=== PATIENT | female | born 1980 | race Caucasian/White ===

== ENCOUNTER 2024-11-29 08:15 | Emergency (ER) | payer BC, SELFPAY ==
[2024-11-29 08:17] VITALS: BP 166/105
--- NOTE | 2024-11-29 08:54 | ED.GENMED ---
History of Present Illness
General
Chief Complaint: Abdominal Pain
Source: patient
Exam Limitations: none
Time Seen by Provider: 11/29/24 08:40
History of Present Illness
History of Present Illness:
43yoF with a history of hypertension, GERD, and diverticulosis presenting for evaluation of epigastric pain. She woke up with the symptoms yesterday morning. She reports a spasming pain that is localized to her epigastric region. She is also
having associated belching. Symptoms worsen if she is laying prone. She had some nausea and dry heaving last night. She has had GERD present similarly in the past. She tried Nexium, Gaviscon, and a bland diet without much improvement. She
denies any fevers, chest pain, shortness of breath, pleuritic pain, urinary symptoms, constipation, diarrhea. LMP 2-3 weeks ago. No previous abdominal surgeries. She had a colonoscopy and endoscopy last year in [place] which were reportedly
normal. Her only current medication is lisinopril. She denies any NSAID use.
Phy Exam
General Physical Exam
General Presentation: well appearing and no apparent distress
General age: appears stated age
General Skin: warm and dry
General Habitus: normal
General Mental: alert
ENT Exam
ENT Exam: normocephalic
Cardiovascular Exam
Cardiovascular Exam: regular rate/rhythm and no murmur
Pulmonary Exam
Pulmonary Exam: lungs clear, no respiratory distress, no rales, no crackles, no rhonchi and no wheezing
Gastrointestinal Exam
Gastrointestinal Exam: soft, non distended and other (+Tenderness in the epigastrium. Remainder of abdomen is non-tender. Abdomen soft, non-distended. No rebound or guarding. )
Neurological Exam
Neurological Exam: alert
[place] Coma Scale
Eye Opening: Spontaneous
Verbal Response: Oriented
Motor Response: Obeys Commands
GCS Total Score: 15
Skin Exam
Skin Exam: normal color and warm/dry
Psychiatric Exam
Psychiatric Exam: normal mood/affect
Course
Orders/Labs/Results
Orders:
Orders
11/29/24 08:21
ECG [Electrocardiogram (*1)] Urgent
Reason for Study: Abdominal Pain
11/29/24 08:22
EKG- Treatment ONCE
11/29/24 08:53
Famotidine [Pepcid] 20 mg IV NOW STA
Pantoprazole [Protonix IV] 40 mg IV NOW STA
Sucralfate Suspension [Carafate Suspension] 1 gm PO NOW STA
Test Result ONCE
US Abdomen Complete/Upper Urgent
Comment:
Reason For Exam: epigastric pain
11/29/24 09:05
Complete Blood Count/With Diff Urgent
Comprehensive Metabolic Panel Urgent
HCG, Serum Qualitative Screen Urgent
Lipase Urgent
Troponin I Urgent
11/29/24 11:15
Mag Hydrox/Al Hydrox/Simeth [Maalox] 15 ml PO NOW STA
11/29/24 11:16
Viscous Lidocaine 2% [Xylocaine Viscous Cup] 15 ml PO ONCE ONE
11/29/24 11:27
Mag Hydrox/Al Hydrox/Simeth [Maalox] 30 ml .ROUTE .STK-MED ONE
Abnormal Lab Results
11/29/24
09:05
MPV 11.0 H fL
(7.4-10.4)
Chloride 108 H mmol/L
(98-107)
Glucose 106 H mg/dl
(70-99)
11/29/24 09:05
11/29/24 09:05
Vital Signs
Initial and Last Documented VS:
Initial Vital Signs
Temp Pulse Resp BP Pulse Ox
97.9 F 88 16 166/105 99
11/29/24 08:17 11/29/24 08:17 11/29/24 08:17 11/29/24 08:17 11/29/24 08:17
Last Documented Vital Signs
Temp Pulse Resp BP Pulse Ox
97.9 F 81 18 157/103 99
11/29/24 08:17 11/29/24 11:31 11/29/24 11:31 11/29/24 11:31 11/29/24 11:31
MDM/Problems Addressed
Differential Diagnosis Includes:
43yoF here with epigastric pain since yesterday. Also c/o belching and had some nausea/dry heaving yesterday. Hx of GERD. Denies CP/SOB. Mild hypertension noted in triage. Remainder of vitals are stable. She is well appearing in no distress. No
signs of peritonitis on abdominal exam. Differential diagnosis includes but is not limited to: GERD, gastritis, PUD, pancreatitis, biliary colic, consider ACS
Initial ED plan: EKG obtained in triage shows NSR without ischemic changes. Will check abdominal labs, troponin, and upper abdominal ultrasound. IV Protonix, Pepcid, and Carafate for symptoms.
*EKG
Interpreted by ED Provider?: Yes
EKG Intrepretation Date: 11/29/24
Heart Rate: 77
Rate: normal
Rhythm: sinus
Hiram: normal axis
Interval: normal interval
QRS Pattern: normal QRS
Ischemia: no ischemia
*Critical Care Note
Total Time (30-74mins, 75-104mins- exclusive of procedures): Not Applicable
Update Note
Update Note:
Labs unremarkable including normal white count, lipase, LFTs, and renal function. Troponin within normal limits. Upper abdominal ultrasound is negative for acute findings. Pain improved on reassessment although is still present. No indication
for hospitalization at this time. Suspect gastritis. Prescriptions provided for Protonix, Carafate, and Zofran. She was advised to follow-up with her PCP as well as gastroenterology. Strict ED return precautions discussed. Patient in agreement
with plan and was discharged in stable condition.
ED Attending Note
-
Portions of this chart may have been created with voice recognition software.� Occasional wrong word or��sound alike� substitutions may have occurred due to the inherent limitations of voice recognition software.
Discharge Plan
Departure
Patient Disposition: Home (Routine Discharge)
Date of Disposition: 11/29/24
Time of Disposition: 11:16
Patient with high blood pressure during this ER visit?: Yes
Discharge Problem:
Epigastric abdominal pain
Instructions: Abdominal Pain
Prescriptions:
New
pantoprazole [Protonix] 40 mg tablet,delayed release (DR/EC)
40 mg PO BID Qty: 60 0RF
sucralfate [Carafate] 1 gram tablet
1 g PO ACHS Qty: 40 0RF
ondansetron 4 mg tablet,disintegrating
4 mg PO Q6 PRN (Reason: nausea and vomiting) Qty: 20 0RF
Referrals:
Pavel Alcantara Jr., MD [Family Provider] -
Sabrina Buckley MD [Active] -
Activity Restrictions/Additional Instructions:
Take Protonix and Carafate as prescribed. You may also take famotidine (Pepcid) 20mg twice daily as needed. Take Zofran as needed for nausea.
Please follow-up with your family doctor and press tender. Return to the ER with any new or worsening symptoms including severe pain or fevers.
Interventions
Interventions:
*Risk Screen - Suicide Last Done: 11/29/24 08:17
*General Assessment Last Done: 11/29/24 08:17
*Nursing Disposition Last Done: 11/29/24 11:35
JG-Jsxlov-Ljvtwsmopq Assessment Last Done: 11/29/24 09:17
Discharge Date and Time
Discharge Date/Time: 11/29/24 11:40
Print Language: KHMER
[2024-11-29 09:03] VITALS: BMI 41.2
[2024-11-29] MEDS: PEPCID 20 MG IV (09:10)
[2024-11-29] MEDS: CARAFATE SUSPENSION 1 GM PO (09:10)
[2024-11-29] MEDS: PROTONIX IV 40 MG IV (09:10)
[2024-11-29 09:31] LABS: % Basophils 0.6 % (0-2); % Eosinophils 3.5 % (0-6); % Immature Granulocytes 0.4 % (0-0.5); % Lymphocytes 26.4 % (20.5-51.1); % Monocytes 5.7 % (1.7-9.3); % Neutrophils 63.4 % (42.2-75.2); Absolute Eosinophils 0.3 10^3/uL (0-0.7); Absolute Lymphocytes 1.9 10^3/uL (1.2-3.4); Absolute Monocytes 0.4 10^3/uL (0.1-0.6); Absolute Neutrophils 4.6 10^3/uL (1.4-6.5); Hematocrit 42.5 % (37.0-47.0); Hemoglobin 14.1 g/dL (12.0-16.0); Mean Corp Hgb Conc. 33.2 g/dL (33.0-37.0); Mean Corpuscular Hgb 28.7 pg (27.0-31.0); Mean Corpuscular Volume 86.6 fL (81.0-99.0); Nucleated Red Blood Cells % 0 %; Platelet Count 217 10^3/uL (130-400); Red Blood Cell Count 4.91 10^6/uL (4.20-5.40); Red Cell Dist. Width 13.1 % (11.5-14.5); White Blood Cell Count 7.2 10^3/uL (4.8-10.8)
[2024-11-29 09:32] LABS: HCG, Serum Qualitative Screen Negative
[2024-11-29 09:36] LABS: ALT (SGPT) 15 U/L (0-35); AST (SGOT) 16 U/L (14-36); Albumin 4.3 g/dl (3.5-5.0); Alkaline Phosphatase 60 U/L (38-126); Blood Urea Nitrogen 15 mg/dl (7-17); Calcium 9.3 mg/dl (8.4-10.2); Carbon Dioxide 23 mmol/L (22-30); Chloride 108 mmol/L (98-107); Estimated Creatinine Clearance 118 ml/min; Glucose 106 mg/dl (70-99); Potassium 4.2 mmol/L (3.5-5.1); Sodium 139 mmol/L (135-145); Total Bilirubin 0.5 mg/dl (0.2-1.3); Total Protein 6.8 g/dl (6.3-8.2); eGFR > 60.00
[2024-11-29 09:46] LABS: Troponin I < 0.012 ng/ml
[2024-11-29 10:01] LABS: Lipase 101 U/L (23-300)
[2024-11-29] MEDS: MAALOX 15 ML PO (11:29)
[2024-11-29] MEDS: XYLOCAINE VISCOUS CUP 15 ML PO (11:29)
[2024-11-29 11:31] VITALS: BP 157/103
== END 2024-11-29 11:40 | disposition home or self-care (01) ==
LOC: EMR 08:15
PROVIDERS: Physician Assistant; EMERGENCY PHYSICIAN Emergency Medicine
DX: R10.13 Epigastric pain (principal); R11.0 Nausea; I10 Essential (primary) hypertension; K21.9 Gastro-esophageal reflux disease without esophagitis; Z87.19 Personal history of other diseases of the digestive system
CPT/HCPCS: 96374; 96375; 99284; 76700; 80053; 83690; 84484; 84703; 85025; 93005

== ENCOUNTER 2025-03-15 10:18 | Emergency (ER) | payer OTHER, SELFPAY ==
[2025-03-15 10:22] VITALS: BP 140/74
--- NOTE | 2025-03-15 11:16 | ED.GENMED ---
History of Present Illness
General
Chief Complaint: Cold/Flu/URI Symptoms
Source: patient
Time Seen by Provider: 03/15/25 10:56
History of Present Illness
History of Present Illness:
44-year-old female presents to the emergency room for evaluation of fever up to 102.4 at home. She has bodyaches and fatigue. Patient's been feeling unwell for the past 4 days or so. She was seen by her primary care doctor who started her on
doxycycline as well as sending off testing for Lyme, mono and Hant virus. Patient denies travel to the [facility]. She took a COVID test at home which was negative. Cough is nonproductive. She has some increased urinary frequency but denies
dysuria.
Phy Exam
Physical Exam
Physical Exam:
General: Awake, Alert, Oriented X3. No acute distress.
Vitals: Temp 100.6
Head: Atraumatic
Eyes: Pupils equal, EOMI
Throat: Airway intact, no exudates
Neck: Trachea midline
Lungs: Clear and equal b/l
Heart: Regular rate, no murmurs
Abd: Soft, Nontender, No pulsatile mass
Neuro: Nonfocal
Skin: Warm, dry, no rash
Extremities: pulses equal b/l, no edema
Course
Orders/Labs/Results
Orders:
Orders
03/15/25 11:15
0.9% Sodium Chloride 1000 ml [Nss] 1,000 ml IV BOLUS
Ketorolac [Toradol] 15 mg IV NOW STA
Ondansetron Injectable [Zofran] 4 mg IV NOW STA
CR Chest - 2 Views Urgent
Comment:
Reason For Exam: fever, cough
03/15/25 11:51
Complete Blood Count/With Diff Urgent
Comprehensive Metabolic Panel Urgent
Urinalysis Reflex To Culture Urgent
Date Specimen was Collected: 03/15/25
Time Specimen was Collected: 11:25
Urine Microscopic Reflex Cult Urgent
Urine Culture Urgent
CLOV[place] Source: U
Specimen Description:
Date Specimen was Collected: 03/15/25
Time Specimen was Collected: :25
03/15/25 13:18
Acetaminophen [Tylenol] 650 mg .ROUTE .STK-MED ONE
03/15/25 13:20
Acetaminophen [Tylenol] 650 mg PO NOW STA
Abnormal Lab Results
03/15/25
11:51
WBC 11.8 H 10^3/uL
(4.8-10.8)
MPV 11.9 H fL
(7.4-10.4)
Absolute Neuts (auto) 10.7 H 10^3/uL
(1.4-6.5)
Absolute Lymphs (auto) 0.6 L 10^3/uL
(1.2-3.4)
Neutrophils % 90.4 H %
(42.2-75.2)
Lymphocytes % 4.6 L %
(20.5-51.1)
Carbon Dioxide 20 L mmol/L
(22-30)
Glucose 103 H mg/dl
(70-99)
Urine Ketones 3+ A
(Negative)
Ur Occult Blood Reflex 2+ A
(Negative)
Leukocyte Esterase Rfl 1+ A
(Negative)
Urine RBC 3-6 A /HPF
(0-2)
Urine Bacteria (Reflex) Moderate A
(Negative)
Urine Albumin (Reflex) 2+ A
(Neg - Trace)
03/15/25 11:51
03/15/25 11:51
Vital Signs
Initial and Last Documented VS:
Initial Vital Signs
Temp Pulse Resp BP Pulse Ox
100.6 F H 127 20 140/74 97
03/15/25 10:22 03/15/25 10:22 03/15/25 10:22 03/15/25 10:22 03/15/25 10:22
Last Documented Vital Signs
Temp Pulse Resp BP Pulse Ox
100.6 F H 127 20 140/74 98
03/15/25 10:22 03/15/25 10:22 03/15/25 10:22 03/15/25 10:22 03/15/25 13:15
MDM/Problems Addressed
Differential Diagnosis Includes:
Pneumonia, acute bronchitis,, Lyme, other viral illness
MDM/Problems Addressed:
Patient presents with fever, chills, cough. Workup here is unremarkable other than a infiltrate on her chest x-ray. She is already on Doxy which would cover this. Patient stable for discharge home.
*Pulse Oximetry
SaO2: 97
Oxygen Mode of Delivery: Room air
Patient hypoxic: no
*Critical Care Note
Total Time (30-74mins, 75-104mins- exclusive of procedures): Not Applicable
ED Attending Note
-
Portions of this chart may have been created with voice recognition software.� Occasional wrong word or��sound alike� substitutions may have occurred due to the inherent limitations of voice recognition software.
Discharge Plan
Departure
Patient Disposition: Home (Routine Discharge)
Date of Disposition: 03/15/25
Time of Disposition: 12:37
Patient with high blood pressure during this ER visit?: No
Condition: Good
Discharge Problem:
Pneumonia
Instructions: Pneumonia in adults - ED discharge instructions
Prescriptions:
No Action
pantoprazole [Protonix] 40 mg tablet,delayed release (DR/EC)
40 mg PO BID Qty: 60 0RF
sucralfate [Carafate] 1 gram tablet
1 g PO ACHS Qty: 40 0RF
ondansetron 4 mg tablet,disintegrating
4 mg PO Q6 PRN (Reason: nausea and vomiting) Qty: 20 0RF
Referrals:
Pavel Alcantara Jr., MD [Family Provider, Family Practice]
Activity Restrictions/Additional Instructions:
The x-ray today showed pneumonia. You should continue the doxycycline. Return to the emergency room if you are feeling more short of breath or feel like you are getting worse. You can use your albuterol metered-dose inhaler every 4-6 hours as
needed.
Interventions
Interventions:
*Risk Screen - Suicide Last Done: 03/15/25 10:22
*General Assessment Last Done: 03/15/25 13:15
*Neglect/Abuse Screening Last Done: 03/15/25 10:22
*ED- Fall Risk Assessment Last Done: 03/15/25 11:53
*ED COVID-19 Vaccine History Last Done: 03/15/25 11:53
*Nursing Disposition Last Done: 03/15/25 13:15
ED- Pulmonary Assessment Last Done: 03/15/25 11:53
Discharge Date and Time
Discharge Date/Time: 03/15/25 13:15
Print Language: PERSIAN
[2025-03-15 11:37] VITALS: BMI 42.3
[2025-03-15] MEDS: NSS 1000 IV (11:52)
[2025-03-15] MEDS: TORADOL 15 MG IV (11:53)
[2025-03-15] MEDS: ZOFRAN 4 MG IV (11:53)
[2025-03-15 12:37] LABS: Urine Character Clear (Clear)
[2025-03-15 12:38] LABS: Hematocrit 40.9 % (37.0-47.0); Hemoglobin 13.8 g/dL (12.0-16.0); Mean Corp Hgb Conc. 33.7 g/dL (33.0-37.0); Mean Corpuscular Volume 86.5 fL (81.0-99.0); Nucleated Red Blood Cells % 0 %; Platelet Count 163 10^3/uL (130-400); Red Cell Dist. Width 12.9 % (11.5-14.5)
[2025-03-15 12:51] LABS: ALT (SGPT) 14 U/L (0-35); AST (SGOT) 15 U/L (14-36); Albumin 4.0 g/dl (3.5-5.0); Alkaline Phosphatase 74 U/L (38-126); Blood Urea Nitrogen 8 mg/dl (7-17); Calcium 8.7 mg/dl (8.4-10.2); Carbon Dioxide 20 mmol/L (22-30); Chloride 106 mmol/L (98-107); Estimated Creatinine Clearance 104 ml/min; Glucose 103 mg/dl (70-99); Potassium 3.8 mmol/L (3.5-5.1); Sodium 136 mmol/L (135-145); Total Protein 7.0 g/dl (6.3-8.2); eGFR > 60.00
[2025-03-15 12:58] LABS: Urine Squamous Cell 16-20 /LPF (Few)
[2025-03-15] MEDS: TYLENOL 650 MG PO (13:20)
== END 2025-03-15 13:15 | disposition home or self-care (01) ==
LOC: EMR 10:18
PROVIDERS: EMERGENCY PHYSICIAN Emergency Medicine
DX: J18.9 Pneumonia, unspecified organism (principal); R35.0 Frequency of micturition
CPT/HCPCS: 96374; 96375; 96361; 99284; 71046; 80053; 81003; 81015; 85025; 87086